=== PATIENT | female | born 1945 | race Caucasian/White ===

== ENCOUNTER 2021-07-14 18:29 | Inpatient (IN) | payer OTHER ==
[2021-07-14] MEDS ORDERED: ACETAMINOPHEN 1000 MG/100 ML VIAL IVPB ONE (19:04)
[2021-07-14] MEDS ORDERED: DIPHTH,PERTUSS(ACELL),TET 0.5 ML DISP.SYRIN IM ONE ×2 (19:24→19:42)
[2021-07-14] MEDS ORDERED: ACETAMINOPHEN INJECTION 100 ML IVPB ONE (19:42)
[2021-07-14 19:50] LABS: EOS % 1.6 % (0-4.5); HEMATOCRIT 35.3 % (32.4-45.2); HEMOGLOBIN 11.5 GM/dL (10.7-15.3); LYMPH % 14.2 % (8-40); MCH 26.9 pg (25.7-33.7); MCHC 32.6 g/dl (32.0-36.0); MEAN CELL VOLUME 82.6 fl (80-96); MEAN PLT VOLUME 7.6 fl (7.5-11.1); MONO % 6.1 % (3.8-10.2); NEUT % 77.1 % (42.8-82.8); PLATELET COUNT 260 10^3/uL (134-434); RBC 4.28 M/mm3 (3.60-5.2); RDW 15.4 % (11.6-15.6); WHITE BLOOD COUNT 8.3 K/mm3 (4.0-10.0)
[2021-07-14 20:01] LABS: INR 1.12 (0.83-1.09); PROTHROMBIN TIME (PATIENT) 12.6 SEC (9.7-13.0)
[2021-07-14 20:04] LABS: ACTIVATED PTT 27.9 SECONDS (25.2-36.5)
[2021-07-14] MEDS ORDERED: morphine CARPU-JECT 2 MG/1 ML DISP.SYRIN IVPUSH ONE (20:08)
[2021-07-14] MEDS ORDERED: METOCLOPRAMIDE HCL INJECTION 10 MG/2 ML VIAL IVPUSH ONE (20:08)
[2021-07-14] MEDS ORDERED: LACTATED RINGERS SOLUTION 1000 ML INFUS.BAG IV ONE (20:08)
[2021-07-14 20:09] LABS: CHLORIDE 104 mmol/L (98-107); SODIUM 139 mmol/L (136-145)
[2021-07-14] MEDS ORDERED: METOCLOPRAMIDE HCL INJECTION 10 MG/2 ML VIAL ONE (20:10)
[2021-07-14] MEDS ORDERED: morphine SULFATE 4 MG/ML VIAL ONE (20:10)
[2021-07-14 20:12] LABS: ALBUMIN 3.4 g/dl (3.4-5.0); ANION GAP 9 MMOL/L (8-16); BLOOD UREA NITROGEN 13.1 mg/dL (7-18); CALCIUM 8.9 mg/dL (8.5-10.1); CO2 26 mmol/L (21-32)
[2021-07-14 20:13] LABS: GLUCOSE,RANDOM 155 mg/dL (74-106)
[2021-07-14 20:16] LABS: CREATININE 0.8 mg/dL (0.55-1.3); SGOT/AST 25 U/L (15-37); SGPT/ALT 24 U/L (13-61)
[2021-07-14 20:17] LABS: BILIRUBIN,TOTAL 0.3 mg/dL (0.2-1); TOT PROT 7.7 g/dl (6.4-8.2)
[2021-07-14 20:18] LABS: ALK PHOS 85 U/L (45-117)
[2021-07-15] MEDS ORDERED: MELATONIN 5 MG TABLETS PO ONE (00:36)
[2021-07-15] MEDS ORDERED: MELATONIN 5 MG TABLETS ONE (01:01)
[2021-07-15 05:43] LABS: PH,URINE 5.5 (5.0-8.0); URINE APPEARANCE CLEAR; URINE BILIRUBIN NEGATIVE (NEGATIVE); URINE COLOR YELLOW; URINE GLUCOSE (UA) NEGATIVE (NEGATIVE); URINE KETONE NEGATIVE (NEGATIVE); URINE LEUK ESTERASE NEGATIVE (NEGATIVE); URINE NITRITE NEGATIVE (NEGATIVE); URINE PROTEIN NEGATIVE (NEGATIVE); URINE UROBILINOGEN 0.2 mg/dL (0.2-1.0)
[2021-07-15] MEDS ORDERED: INSULIN (NOVOLOG) ASPART 100 UNITS/ML 10ML VIAL SQ SCH (07:00)
[2021-07-15 07:31] LABS: HEMATOCRIT 29.8 % (32.4-45.2); MCH 27.5 pg (25.7-33.7); MCHC 33.5 g/dl (32.0-36.0); MEAN PLT VOLUME 7.7 fl (7.5-11.1); PLATELET COUNT 253 10^3/uL (134-434); RBC 3.63 M/mm3 (3.60-5.2); RDW 15.6 % (11.6-15.6); WHITE BLOOD COUNT 5.5 K/mm3 (4.0-10.0)
[2021-07-15 07:58] LABS: ALBUMIN 3.2 g/dl (3.4-5.0); BLOOD UREA NITROGEN 9.2 mg/dL (7-18); CALCIUM 8.5 mg/dL (8.5-10.1); MAGNESIUM 1.6 mg/dL (1.8-2.4)
[2021-07-15 08:01] LABS: CREATININE 0.6 mg/dL (0.55-1.3)
[2021-07-15 08:02] LABS: PHOSPHOROUS 3.4 mg/dL (2.5-4.9)
[2021-07-15 08:03] LABS: BILIRUBIN,TOTAL 0.6 mg/dL (0.2-1); TOT PROT 6.8 g/dl (6.4-8.2)
[2021-07-15 08:26] LABS: CHOLESTEROL 93 mg/dL (50-200)
[2021-07-15 08:27] LABS: TRIGLYCERIDES 117 mg/dL (0-150)
[2021-07-15 08:28] LABS: LDL CHOLESTEROL (ONLY SJRH) 43 mg/dL (5-100)
[2021-07-15 08:31] LABS: HDL CHOLESTEROL 39 mg/dL (40-60)
[2021-07-15] MEDS: INSULIN SLIDING SCALE (NOVOLOG) 1 VIAL SQ SCH ×3 (09:07→22:17)
[2021-07-15] MEDS ORDERED: amLODIPine BESYLATE 5 MG TABLET (FP) PO SCH (10:00)
[2021-07-15] MEDS ORDERED: amLODIPine BESYLATE 5 MG TABLET (FP) ONE (11:19)
[2021-07-15] MEDS ORDERED: CLOPIDOGREL BISULFATE 75 MG TABLET (FP) ONE (11:19)
[2021-07-15] MEDS ORDERED: VALSARTAN 80 MG TABLET ONE (11:19)
[2021-07-15] MEDS ORDERED: DONEPEZIL HCL 5 MG TABLET (FP) ONE (11:19)
[2021-07-15] MEDS ORDERED: ENOXAPARIN NA (PORCINE) 40 MG/0.4 ML DISP.SYRIN SQ ONE (11:20)
[2021-07-15] MEDS ORDERED: ESCITALOPRAM OXALATE 10 MG TABLET ONE (11:20)
[2021-07-15] MEDS: DONEPEZIL HCL 10 MG TABLET (FP) PO SCH (11:58)
[2021-07-15] MEDS: VALSARTAN 160 MG TABLET PO SCH (12:01)
[2021-07-15] MEDS: MEMANTINE HCL 10 MG TABLET (FP) PO SCH ×2 (12:03→22:17)
[2021-07-15] MEDS: ENOXAPARIN NA (PORCINE) 40 MG/0.4 ML DISP.SYRIN SQ SCH (12:03)
[2021-07-15] MEDS: ESCITALOPRAM OXALATE 10 MG TABLET PO SCH (12:03)
[2021-07-15] MEDS: CLOPIDOGREL BISULFATE 75 MG TABLET (FP) PO SCH (12:04)
[2021-07-15] MEDS ORDERED: HALOPERIDOL 2 MG TABLET PO ONE (15:13)
[2021-07-15] MEDS ORDERED: HALOPERIDOL 1 MG TABLET PO ONE (15:30)
[2021-07-15] MEDS: amLODIPine BESYLATE 5 MG TABLET (FP) PO SCH (22:17)
[2021-07-15] MEDS: MELATONIN 5 MG TABLETS PO PRN (22:18)
[2021-07-16] MEDS ORDERED: HALOPERIDOL LACTATE 5 MG/ML IM ONE (00:31)
[2021-07-16] MEDS: INSULIN SLIDING SCALE (NOVOLOG) 1 VIAL SQ SCH ×5 (06:59→22:30)
[2021-07-16] MEDS: DONEPEZIL HCL 10 MG TABLET (FP) PO SCH (10:09)
[2021-07-16] MEDS: VALSARTAN 160 MG TABLET PO SCH (10:09)
[2021-07-16] MEDS: ENOXAPARIN NA (PORCINE) 40 MG/0.4 ML DISP.SYRIN SQ SCH (10:09)
[2021-07-16] MEDS: ESCITALOPRAM OXALATE 10 MG TABLET PO SCH (10:09)
[2021-07-16] MEDS: CLOPIDOGREL BISULFATE 75 MG TABLET (FP) PO SCH (10:09)
[2021-07-16] MEDS: MEMANTINE HCL 10 MG TABLET (FP) PO SCH ×2 (10:12→21:55)
[2021-07-16] MEDS: ACETAMINOPHEN 325 MG TABLET (FP) PO PRN (20:27)
[2021-07-16] MEDS: amLODIPine BESYLATE 5 MG TABLET (FP) PO SCH (21:55)
[2021-07-16] MEDS: MELATONIN 5 MG TABLETS PO PRN (21:55)
[2021-07-17] MEDS: INSULIN SLIDING SCALE (NOVOLOG) 1 VIAL SQ SCH ×5 (07:30→22:07)
[2021-07-17] MEDS ORDERED: PT OWN MED DRAWER 7, Y5N ONE (09:36)
[2021-07-17] MEDS: DONEPEZIL HCL 10 MG TABLET (FP) PO SCH (09:41)
[2021-07-17] MEDS: CLOPIDOGREL BISULFATE 75 MG TABLET (FP) PO SCH (09:41)
[2021-07-17] MEDS: ESCITALOPRAM OXALATE 10 MG TABLET PO SCH (09:41)
[2021-07-17] MEDS: MEMANTINE HCL 10 MG TABLET (FP) PO SCH ×2 (09:41→22:06)
[2021-07-17] MEDS: VALSARTAN 160 MG TABLET PO SCH (09:41)
[2021-07-17] MEDS: ACETAMINOPHEN 325 MG TABLET (FP) PO PRN (09:42)
[2021-07-17] MEDS: ENOXAPARIN NA (PORCINE) 40 MG/0.4 ML DISP.SYRIN SQ SCH (09:43)
[2021-07-17] MEDS: amLODIPine BESYLATE 5 MG TABLET (FP) PO SCH (22:06)
[2021-07-17] MEDS: MELATONIN 5 MG TABLETS PO PRN (22:06)
[2021-07-18] MEDS: INSULIN SLIDING SCALE (NOVOLOG) 1 VIAL SQ SCH ×2 (06:47→11:26)
[2021-07-18 08:10] LABS: BASO % 0.5 % (0-2.0); EOS % 3.9 % (0-4.5); HEMATOCRIT 28.4 % (32.4-45.2); HEMOGLOBIN 9.4 GM/dL (10.7-15.3); LYMPH % 25.5 % (8-40); MCH 27.2 pg (25.7-33.7); MCHC 33.3 g/dl (32.0-36.0); MEAN CELL VOLUME 81.8 fl (80-96); MEAN PLT VOLUME 7.8 fl (7.5-11.1); MONO % 8.9 % (3.8-10.2); NEUT % 61.2 % (42.8-82.8); PLATELET COUNT 217 10^3/uL (134-434); RBC 3.47 M/mm3 (3.60-5.2); RDW 15.6 % (11.6-15.6); WHITE BLOOD COUNT 4.9 K/mm3 (4.0-10.0)
[2021-07-18 08:31] LABS: CALCIUM 8.5 mg/dL (8.5-10.1)
[2021-07-18 08:32] LABS: BLOOD UREA NITROGEN 14.3 mg/dL (7-18)
[2021-07-18 08:35] LABS: CREATININE 0.7 mg/dL (0.55-1.3)
[2021-07-18 08:36] LABS: BILIRUBIN,TOTAL 0.5 mg/dL (0.2-1); TOT PROT 6.5 g/dl (6.4-8.2)
[2021-07-18 09:13] VITALS: PULSE 69
[2021-07-18] MEDS: VALSARTAN 160 MG TABLET PO SCH (10:33)
[2021-07-18] MEDS: CLOPIDOGREL BISULFATE 75 MG TABLET (FP) PO SCH (10:33)
[2021-07-18] MEDS: DONEPEZIL HCL 10 MG TABLET (FP) PO SCH (10:33)
[2021-07-18] MEDS: MEMANTINE HCL 10 MG TABLET (FP) PO SCH (10:33)
[2021-07-18] MEDS: ESCITALOPRAM OXALATE 10 MG TABLET PO SCH (10:33)
[2021-07-18] MEDS: ENOXAPARIN NA (PORCINE) 40 MG/0.4 ML DISP.SYRIN SQ SCH (10:33)
[2021-07-18 14:10] VITALS: BP 136/73; TEMP 98.5
[2021-07-18 15:20] VITALS: BMI 34.7
[2021-07-18] MEDS ORDERED: ATORVASTATIN CA 40 MG TABLET (FP) PO SCH (22:00)
== END 2021-07-18 17:27 | disposition left against medical advice (07) | DRG 312 ==
LOC: JER 18:29 → JERBED 23:15 → J4S 07-15 20:47 → OBSVTOIN 07-18 13:41
PROVIDERS: ADMIT Internal Medicine
DX: R55 Syncope and collapse (principal); E11.9 Type 2 diabetes mellitus without complications; I25.2 Old myocardial infarction; F07.81 Postconcussional syndrome; I25.10 Atherosclerotic heart disease of native coronary artery without angina pectoris; F03.90 Unspecified dementia, unspecified severity, without behavioral disturbance, psychotic disturbance, mood disturbance, and anxiety; E87.6 Hypokalemia; G93.89 Other specified disorders of brain; Z79.84 Long term (current) use of oral hypoglycemic drugs; R82.71 Bacteriuria; I10 Essential (primary) hypertension; S00.83XA Contusion of other part of head, initial encounter; S80.01XA Contusion of right knee, initial encounter; W19.XXXA Unspecified fall, initial encounter; Y93.89 Activity, other specified; Y92.89 Other specified places as the place of occurrence of the external cause; Y99.8 Other external cause status; D64.9 Anemia, unspecified; E78.5 Hyperlipidemia, unspecified; Z88.0 Allergy status to penicillin; R26.81 Unsteadiness on feet
CPT/HCPCS: 36415; 70450-TC; 70486-TC; 70551-TC; 71045-TC-FY; 72125-TC; 73523-TC-FY; 73562-TC-LT-FY; 73562-TC-RT-FY; 74177-TC; 80053; 80061; 81003; 82550; 82607; 82962; 83036; 83735; 84100; 84443; 84484; 85025; 85027; 85610; 85730; 86780; 86850; 86900; 86901; 87086; 87186; 90715; 93005; 93010; 93306-TC; 93880-TC; 97116-GP; 97161-GP; 99285-25; C9803; G0378; J0131; Q9967; U0003; U0005